=== PATIENT | female | born 1940 | race Caucasian/White ===

== ENCOUNTER → 2017-10-23 08:30 | Outpatient (CLI) | payer MEDICARE, SELFPAY ==
[2017-10-23 10:15] LABS: Alanine Aminotransferase 30 IU/L (9-52); Albumin 4.4 g/dL (3.5-5.0); Albumin Globulin Ratio 1.6 (1.0-2.8); Alkaline Phosphatase 62 U/L (38-126); Aspartate Aminotransferase 17 IU/L (14-36); BUN Creatinine Ratio 17.1 (6-22); Bilirubin Total 0.7 mg/dL (0.2-1.3); Blood Urea Nitrogen 12 mg/dL (7-17); Calcium 9.8 mg/dL (8.4-10.2); Carbon Dioxide 26 mmol/L (22-32); Chloride 104 mmol/L (98-107); Cholesterol 164 mg/dL (140-199); Estimated Glomerular Filt Rate > 60.0 mL/min (>60); Globulin 2.8 g/dL (1.7-4.1); Glucose 98 mg/dL (80-110); HDL Cholesterol 36 mg/dL (40-60); HEMOLYSIS < 15 (0-50); LDL Cholesterol Calculated 102 mg/dL (<100); Potassium 4.3 mmol/L (3.4-5.1); Sodium 144 mmol/L (137-145); Total Protein 7.2 g/dL (6.3-8.2); Triglycerides 129 mg/dL (35-150)
== END ==
PROVIDERS: PCP Internal Medicine; Visit Provider Internal Medicine
DX: I10 Essential (primary) hypertension (principal); E78.00 Pure hypercholesterolemia, unspecified
CPT/HCPCS: 36415; 80053; 80061

== ENCOUNTER → 2018-12-21 09:01 | Outpatient (CLI) | payer MEDICARE, SELFPAY ==
[2018-12-21 10:43] LABS: Alanine Aminotransferase 17 IU/L (9-52); Albumin 4.6 g/dL (3.5-5.0); Albumin Globulin Ratio 1.4 (1.0-2.8); Alkaline Phosphatase 65 U/L (38-126); Aspartate Aminotransferase 22 IU/L (14-36); BUN Creatinine Ratio 18.8 (6-22); Bilirubin Total 0.6 mg/dL (0.2-1.3); Blood Urea Nitrogen 15 mg/dL (7-17); Carbon Dioxide 31 mmol/L (22-32); Chloride 102 mmol/L (98-107); Cholesterol 160 mg/dL (140-199); Estimated Glomerular Filt Rate > 60.0 mL/min (>60); Globulin 3.4 g/dL (1.7-4.1); Glucose 94 mg/dL (80-110); HDL Cholesterol 35 mg/dL (40-60); HEMOLYSIS < 15 (0-50); LDL Cholesterol Calculated 97 mg/dL (<100); Potassium 4.1 mmol/L (3.4-5.1); Sodium 142 mmol/L (137-145); Triglycerides 141 mg/dL (35-150)
[2018-12-21 10:48] LABS: Hematocrit 43.2 % (36-46); Hemoglobin 14.6 g/dL (12.0-16.0); Mean Corpuscular HGB Conc 33.8 % (30-36); Mean Corpuscular Hemoglobin 30.6 PG (26-34); Mean Corpuscular Volume 90.4 fL (80-100); Platelet Count 183 X10^3/uL (150-400); Red Blood Cell Count 4.77 X10^6/uL (4.0-5.2); Red Cell Distribution Width 13.8 % (11.6-14.8); White Blood Cell Count 5.7 X10^3/uL (4.5-11.0)
[2018-12-21 10:55] LABS: Vitamin D 25 Hydroxy (D3) 70.9 ng/mL (30.0-100.0)
[2018-12-21 11:07] LABS: TSH w/ Reflex to FT4 0.63 uIU/mL (0.47-4.68)
[2018-12-21 12:12] LABS: Neutrophils Absolute Manual 3705 /uL (3000-5900); Total Cells Counted 100
[2018-12-21 12:13] LABS: RBC Morphology Normal Morphology
== END ==
PROVIDERS: Family Provider Internal Medicine; PCP Internal Medicine; Visit Provider Nurse Practitioner
DX: E03.9 Hypothyroidism, unspecified (principal); E78.00 Pure hypercholesterolemia, unspecified; I10 Essential (primary) hypertension; E55.9 Vitamin D deficiency, unspecified
CPT/HCPCS: 36415; 80053; 80061; 82306; 84443; 85025

== ENCOUNTER → 2019-01-04 10:03 | Outpatient (CLI) | payer MEDICARE, SELFPAY | PROVIDERS: Family Provider Internal Medicine; PCP Internal Medicine; Visit Provider Nurse Practitioner | DX: Z78.0 Asymptomatic menopausal state (principal); E07.9 Disorder of thyroid, unspecified | CPT/HCPCS: 77080; 77081 ==

== ENCOUNTER → 2019-03-02 08:36 | Outpatient (CLI) | payer MEDICARE, SELFPAY ==
[2019-03-02 10:30] LABS: Alanine Aminotransferase 31 IU/L (9-52); Albumin 4.5 g/dL (3.5-5.0); Albumin Globulin Ratio 1.4 (1.0-2.8); Alkaline Phosphatase 67 U/L (38-126); Aspartate Aminotransferase 27 IU/L (14-36); Blood Urea Nitrogen 12 mg/dL (7-17); Calcium 10.1 mg/dL (8.4-10.2); Carbon Dioxide 32 mmol/L (22-32); Chloride 101 mmol/L (98-107); Cholesterol 174 mg/dL (140-199); Estimated Glomerular Filt Rate > 60.0 mL/min (>60); Globulin 3.2 g/dL (1.7-4.1); Glucose 102 mg/dL (80-110); HDL Cholesterol 34 mg/dL (40-60); HEMOLYSIS < 15 (0-50); LDL Cholesterol Calculated 114 mg/dL (<100); Sodium 142 mmol/L (137-145); Total Protein 7.7 g/dL (6.3-8.2); Triglycerides 132 mg/dL (35-150)
[2019-03-02 10:54] LABS: Thyroid Stimulating Hormone 1.35 uIU/mL (0.47-4.68)
== END ==
PROVIDERS: PCP Internal Medicine; Visit Provider Internal Medicine
DX: E78.00 Pure hypercholesterolemia, unspecified (principal); I10 Essential (primary) hypertension; E03.9 Hypothyroidism, unspecified
CPT/HCPCS: 36415; 80053; 80061; 84443

== ENCOUNTER → 2019-12-19 09:32 | Outpatient (CLI) | payer MEDICARE, SELFPAY ==
[2019-12-19 10:09] LABS: Add Manual Diff / Slide Review NO; Basophils Absolute Auto 100 /uL (0-100); Basophils Percent Auto 1.3 % (0-2); Eosinophils Absolute Auto 200 /uL (0-450); Eosinophils Percent Auto 3.4 % (2-4); Hematocrit 42.7 % (36-46); Hemoglobin 14.6 g/dL (12.0-16.0); Lymphocytes Absolute Auto 1100 /uL (1100-4500); Lymphocytes Percent Auto 22.5 % (25-40); Mean Corpuscular HGB Conc 34.1 % (30-36); Mean Corpuscular Hemoglobin 30.3 PG (26-34); Mean Corpuscular Volume 88.8 fL (80-100); Monocytes Absolute Auto 300 /uL (0-900); Monocytes Percent Auto 6.4 % (3-14); Neutrophils Absolute Auto 3300 /uL (1500-7000); Neutrophils Percent Auto 66.4 % (50-75); Platelet Count 176 X10^3/uL (150-400); Red Blood Cell Count 4.81 X10^6/uL (4.0-5.2); Red Cell Distribution Width 13.7 % (11.6-14.8)
[2019-12-19 10:22] LABS: Hemoglobin A1C% w Est Avg Glu 5.4 % (4.0-6.0)
[2019-12-19 10:25] LABS: Alanine Aminotransferase 24 IU/L (<35); Albumin 4.5 g/dL (3.5-5.0); Albumin Globulin Ratio 1.5 (1.0-2.8); Alkaline Phosphatase 68 U/L (38-126); Aspartate Aminotransferase 25 IU/L (14-36); BUN Creatinine Ratio 19.7 (6-22); Bilirubin Total 0.9 mg/dL (0.2-1.3); Blood Urea Nitrogen 15 mg/dL (7-17); C-Reactive Protein Quant 0.8 mg/dL (<1.0); Calcium 10.4 mg/dL (8.4-10.2); Carbon Dioxide 30 mmol/L (22-32); Chloride 105 mmol/L (98-107); Cholesterol 162 mg/dL (140-199); Estimated Glomerular Filt Rate > 60.0 mL/min (>60); Globulin 3.1 g/dL (1.7-4.1); Glucose 103 mg/dL (80-110); HDL Cholesterol 32 mg/dL (40-60); HEMOLYSIS < 15 (0-50); LDL Cholesterol Calculated 97 mg/dL (<100); Potassium 4.2 mmol/L (3.4-5.1); Sodium 140 mmol/L (137-145); Total Protein 7.6 g/dL (6.3-8.2); Triglycerides 167 mg/dL (35-150)
[2019-12-19 10:40] LABS: Vitamin D 25 Hydroxy (D3) 73.8 ng/mL (30.0-100.0)
[2019-12-19 10:56] LABS: Free T3, Triiodothyronine Free 2.86 pg/mL (2.77-5.27); Free T4, Direct Thyroxine 1.18 ng/dL (0.78-2.19)
[2019-12-19 10:58] LABS: Ferritin 56 ng/mL (11-264)
[2019-12-19 11:10] LABS: Thyroid Stimulating Hormone 0.807 uIU/mL (0.47-4.68)
[2019-12-19 11:28] LABS: Folate > 20.0 ng/mL (2.76-20.0); Vitamin B12 804 pg/mL (239-931)
[2019-12-21 14:39] LABS: Insulin Level Total 20.6 uIU/mL (2.6-24.9)
== END ==
PROVIDERS: PCP Internal Medicine; Referring Provider Acupuncturist; Visit Provider Acupuncturist
DX: Z13.228 Encounter for screening for other metabolic disorders (principal); G47.9 Sleep disorder, unspecified; I10 Essential (primary) hypertension; E03.9 Hypothyroidism, unspecified; I11.9 Hypertensive heart disease without heart failure
CPT/HCPCS: 36415; 80053; 80061; 82306; 82607; 82627; 82728; 82746; 83036; 83525; 84439; 84443; 84481; 85025; 86140

== ENCOUNTER → 2020-02-15 08:32 | Outpatient (CLI) | payer MEDICARE, SELFPAY ==
[2020-02-15 09:47] LABS: Alanine Aminotransferase 22 IU/L (<35); Albumin 4.5 g/dL (3.5-5.0); Albumin Globulin Ratio 1.4 (1.0-2.8); Alkaline Phosphatase 72 U/L (38-126); Aspartate Aminotransferase 23 IU/L (14-36); BUN Creatinine Ratio 17.1 (6-22); Bilirubin Total 0.7 mg/dL (0.2-1.3); Blood Urea Nitrogen 13 mg/dL (7-17); Carbon Dioxide 26 mmol/L (22-32); Chloride 105 mmol/L (98-107); Estimated Glomerular Filt Rate > 60.0 mL/min (>60); Globulin 3.2 g/dL (1.7-4.1); Glucose 100 mg/dL (80-110); HEMOLYSIS < 15 (0-50); Potassium 4.1 mmol/L (3.4-5.1); Sodium 142 mmol/L (137-145); Total Protein 7.7 g/dL (6.3-8.2)
[2020-02-15 11:14] LABS: Calcium 24 Hour Urine 158 mg/day (100-300); Collection Time Urine 24 Hours; Total Volume Urine 1750 mL
[2020-02-16 07:13] LABS: Parathyroid Hormone Int 18 pg/mL (15-65)
== END ==
PROVIDERS: PCP Internal Medicine; Referring Provider Acupuncturist; Visit Provider Acupuncturist
DX: E21.3 Hyperparathyroidism, unspecified (principal)
CPT/HCPCS: 36415; 80053; 82340; 83970

== ENCOUNTER → 2020-09-19 07:32 | Outpatient (CLI) | payer MEDICARE, SELFPAY ==
[2020-09-19 08:37] LABS: Hemoglobin A1C% w Est Avg Glu 5.4 % (4.0-6.0)
[2020-09-19 08:46] LABS: Basophils Absolute Auto 100 /uL (0-100); Basophils Percent Auto 1.2 % (0-2); Eosinophils Absolute Auto 200 /uL (0-450); Hematocrit 43.8 % (36-46); Hemoglobin 14.8 g/dL (12.0-16.0); Lymphocytes Absolute Auto 1500 /uL (1100-4500); Lymphocytes Percent Auto 21.7 % (25-40); Mean Corpuscular HGB Conc 33.8 % (30-36); Mean Corpuscular Volume 88.7 fL (80-100); Monocytes Absolute Auto 500 /uL (0-900); Monocytes Percent Auto 6.7 % (3-14); Neutrophils Absolute Auto 4700 /uL (1500-7000); Neutrophils Percent Auto 67.4 % (50-75); Red Blood Cell Count 4.94 X10^6/uL (4.0-5.2); Red Cell Distribution Width 13.9 % (11.6-14.8); White Blood Cell Count 6.9 X10^3/uL (4.5-11.0)
[2020-09-19 08:52] LABS: HEMOLYSIS < 15 (0-50); Potassium 4.1 mmol/L (3.4-5.1)
[2020-09-19 08:54] LABS: Alanine Aminotransferase 25 IU/L (<35); Albumin 4.4 g/dL (3.5-5.0); Albumin Globulin Ratio 1.5 (1.0-2.8); Alkaline Phosphatase 64 U/L (38-126); Aspartate Aminotransferase 27 IU/L (14-36); BUN Creatinine Ratio 15.5 (6-22); Bilirubin Total 0.6 mg/dL (0.2-1.3); Blood Urea Nitrogen 13 mg/dL (7-17); C-Reactive Protein Quant 0.8 mg/dL (<1.0); Calcium 10.2 mg/dL (8.4-10.2); Carbon Dioxide 28 mmol/L (22-32); Chloride 105 mmol/L (98-107); Cholesterol 150 mg/dL (140-199); Estimated Glomerular Filt Rate > 60.0 mL/min (>60); Glucose 107 mg/dL (80-110); HDL Cholesterol 30 mg/dL (40-60); LDL Cholesterol Calculated 87 mg/dL (<100); Sodium 141 mmol/L (137-145); Total Protein 7.4 g/dL (6.3-8.2); Triglycerides 163 mg/dL (35-150)
[2020-09-19 08:56] LABS: Add Manual Diff / Slide Review SLIDE REVIEW; Total Iron Binding Capacity 325 ug/dL (265-497)
[2020-09-19 09:03] LABS: Free T3, Triiodothyronine Free 3.12 pg/mL (2.77-5.27); Vitamin D 25 Hydroxy (D3) 81.4 ng/mL (30.0-100.0)
[2020-09-19 09:16] LABS: Thyroid Stimulating Hormone 0.732 uIU/mL (0.47-4.68)
[2020-09-19 09:21] LABS: Ferritin 55 ng/mL (11-264)
[2020-09-19 09:47] LABS: Platelet Count 149 X10^3/uL (150-400)
[2020-09-19 09:49] LABS: RBC Morphology Normal Morphology
[2020-09-19 09:51] LABS: Folate > 20.0 ng/mL (2.76-20.0); Vitamin B12 880 pg/mL (239-931)
[2020-09-20 06:11] LABS: Homocysteine 10.9 umol/L (0.0-19.2)
== END ==
PROVIDERS: PCP Internal Medicine; Referring Provider Acupuncturist; Visit Provider Acupuncturist
DX: E78.00 Pure hypercholesterolemia, unspecified (principal); E72.11 Homocystinuria; D52.9 Folate deficiency anemia, unspecified; E55.9 Vitamin D deficiency, unspecified
CPT/HCPCS: 36415; 80053; 80061; 82306; 82607; 82627; 82728; 82746; 83036; 83090; 83550; 84439; 84443; 84481; 85025; 86140

== ENCOUNTER → 2021-04-16 06:53 | Outpatient (CLI) | payer MEDICARE, SELFPAY ==
[2021-04-16 08:16] LABS: Add Manual Diff / Slide Review NO; Basophils Absolute Auto 100 /uL (0-100); Basophils Percent Auto 1.1 % (0-2); Eosinophils Absolute Auto 200 /uL (0-450); Eosinophils Percent Auto 3.9 % (2-4); Hematocrit 42.2 % (36-46); Hemoglobin 14.3 g/dL (12.0-16.0); Lymphocytes Absolute Auto 1300 /uL (1100-4500); Lymphocytes Percent Auto 22.8 % (25-40); Mean Corpuscular HGB Conc 33.8 % (30-36); Mean Corpuscular Volume 88.7 fL (80-100); Monocytes Absolute Auto 400 /uL (0-900); Monocytes Percent Auto 7.3 % (3-14); Neutrophils Absolute Auto 3600 /uL (1500-7000); Neutrophils Percent Auto 64.9 % (50-75); Platelet Count 172 X10^3/uL (150-400); Red Blood Cell Count 4.76 X10^6/uL (4.0-5.2); Red Cell Distribution Width 13.9 % (11.6-14.8); White Blood Cell Count 5.5 X10^3/uL (4.5-11.0)
[2021-04-16 08:20] LABS: HEMOLYSIS < 15 (0-50)
[2021-04-16 08:23] LABS: Hemoglobin A1C% w Est Avg Glu 5.2 % (4.0-6.0)
[2021-04-16 08:28] LABS: Alanine Aminotransferase 48 IU/L (<35); Albumin 4.6 g/dL (3.5-5.0); Albumin Globulin Ratio 1.6 (1.0-2.8); Alkaline Phosphatase 62 U/L (38-126); Aspartate Aminotransferase 36 IU/L (14-36); BUN Creatinine Ratio 19.1 (6-22); Bilirubin Total 0.7 mg/dL (0.2-1.3); Blood Urea Nitrogen 17 mg/dL (7-17); Calcium 10.2 mg/dL (8.4-10.2); Carbon Dioxide 30 mmol/L (22-32); Chloride 102 mmol/L (98-107); Cholesterol 173 mg/dL (140-199); Estimated Glomerular Filt Rate > 60.0 mL/min (>60); Globulin 2.9 g/dL (1.7-4.1); Glucose 111 mg/dL (80-110); HDL Cholesterol 36 mg/dL (40-60); LDL Cholesterol Calculated 113 mg/dL (<100); Potassium 4.5 mmol/L (3.4-5.1); Sodium 141 mmol/L (137-145); Total Protein 7.5 g/dL (6.3-8.2); Triglycerides 121 mg/dL (35-150)
[2021-04-16 08:53] LABS: HEMOLYSIS < 15 (0-50); Iron 80 ug/dL (37-170)
[2021-04-16 09:00] LABS: Ferritin 70 ng/mL (11-264)
[2021-04-16 09:04] LABS: Percent Iron Saturation 26 % (15-50); Total Iron Binding Capacity 308 ug/dL (265-497); Transferrin 237 mg/dL (206-381)
[2021-04-16 09:11] LABS: Vitamin D 25 Hydroxy (D3) 76.3 ng/mL (30.0-100.0)
[2021-04-16 09:14] LABS: Free T3, Triiodothyronine Free 3.12 pg/mL (2.77-5.27); Free T4, Direct Thyroxine 1.08 ng/dL (0.78-2.19)
[2021-04-16 09:17] LABS: Vitamin B12 845 pg/mL (239-931)
[2021-04-16 09:27] LABS: Thyroid Stimulating Hormone 1.37 uIU/mL (0.47-4.68)
[2021-04-16 09:34] LABS: Folate > 20.0 ng/mL (2.76-20.0)
[2021-04-17 08:10] LABS: Homocysteine 11.5 umol/L (0.0-19.2)
== END ==
PROVIDERS: PCP Internal Medicine; Referring Provider Nurse Practitioner Family; Visit Provider Nurse Practitioner Family
DX: I10 Essential (primary) hypertension (principal); R73.03 Prediabetes; E66.3 Overweight; E78.5 Hyperlipidemia, unspecified; E55.9 Vitamin D deficiency, unspecified; E07.9 Disorder of thyroid, unspecified; E03.9 Hypothyroidism, unspecified; I20.0 Unstable angina
CPT/HCPCS: 36415; 80053; 80061; 82306; 82607; 82627; 82728; 82746; 83036; 83090; 83540; 83550; 84439; 84443; 84481; 85025; 86140

== ENCOUNTER → 2021-11-08 06:42 | Outpatient (CLI) | payer MEDICARE, SELFPAY ==
[2021-11-08 07:52] LABS: Add Manual Diff / Slide Review NO; Basophils Absolute Auto 100 /uL (0-100); Basophils Percent Auto 1.2 % (0-2); Eosinophils Absolute Auto 200 /uL (0-450); Eosinophils Percent Auto 3.6 % (2-4); Hematocrit 44.7 % (36-46); Hemoglobin 15.2 g/dL (12.0-16.0); Lymphocytes Absolute Auto 1300 /uL (1100-4500); Lymphocytes Percent Auto 25.7 % (25-40); Mean Corpuscular HGB Conc 34.1 % (30-36); Mean Corpuscular Volume 88.1 fL (80-100); Monocytes Absolute Auto 400 /uL (0-900); Monocytes Percent Auto 8.6 % (3-14); Neutrophils Absolute Auto 3200 /uL (1500-7000); Neutrophils Percent Auto 60.9 % (50-75); Platelet Count 167 X10^3/uL (150-400); Red Blood Cell Count 5.07 X10^6/uL (4.0-5.2); Red Cell Distribution Width 13.7 % (11.6-14.8); White Blood Cell Count 5.2 X10^3/uL (4.5-11.0)
[2021-11-08 10:05] LABS: Thyroid Stimulating Hormone 0.418 uIU/mL (0.47-4.68)
[2021-11-08 10:16] LABS: Sodium 142 mmol/L (137-145)
[2021-11-08 10:17] LABS: Alanine Aminotransferase 87 IU/L (<35); Alkaline Phosphatase 65 U/L (38-126); Aspartate Aminotransferase 52 IU/L (14-36); BUN Creatinine Ratio 19.3 (6-22); Bilirubin Total 0.9 mg/dL (0.2-1.3); Blood Urea Nitrogen 17 mg/dL (7-17); Calcium 9.7 mg/dL (8.4-10.2); Carbon Dioxide 27 mmol/L (22-32); Chloride 105 mmol/L (98-107); Estimated Glomerular Filt Rate > 60 mL/min (>60); Ferritin 88 ng/mL (11-264); Glucose 102 mg/dL (80-110); Potassium 4.5 mmol/L (3.4-5.1); Uric Acid 7.7 mg/dL (2.5-6.2)
[2021-11-08 10:18] LABS: Albumin 4.3 g/dL (3.5-5.0); Albumin Globulin Ratio 1.5 (1.0-2.8); Cholesterol 187 mg/dL (140-199); Globulin 2.9 g/dL (1.7-4.1); HDL Cholesterol 37 mg/dL (40-60); LDL Cholesterol Calculated 126 mg/dL (<100); Total Protein 7.2 g/dL (6.3-8.2); Triglycerides 119 mg/dL (35-150)
[2021-11-08 11:03] LABS: Vitamin D 25 Hydroxy (D3) 70.4 ng/mL (30.0-100.0)
[2021-11-09 05:44] LABS: Homocysteine 12.7 umol/L (0.0-19.2)
[2021-11-10 15:41] LABS: Hemoglobin A1C% w Est Avg Glu 5.5 % (4.0-6.0)
[2021-11-10 17:53] LABS: Free T3, Triiodothyronine Free 3.51 pg/mL (2.77-5.27); Free T4, Direct Thyroxine 2.08 ng/dL (0.78-2.19)
[2021-11-10 18:32] LABS: C-Reactive Protein Quant 1.1 mg/dL (<1.0)
[2021-11-10 19:33] LABS: Folate > 20.0 ng/mL (2.76-20.0); Vitamin B12 889 pg/mL (239-931)
== END ==
PROVIDERS: PCP Internal Medicine; Referring Provider Acupuncturist; Visit Provider Acupuncturist
DX: E11.9 Type 2 diabetes mellitus without complications (principal); E66.3 Overweight; I11.9 Hypertensive heart disease without heart failure; E78.00 Pure hypercholesterolemia, unspecified; I10 Essential (primary) hypertension; E55.9 Vitamin D deficiency, unspecified; E03.9 Hypothyroidism, unspecified
CPT/HCPCS: 36415; 80053; 80061; 82306; 82607; 82627; 82728; 82746; 83036; 83090; 84439; 84443; 84481; 84550; 85025; 86140

== ENCOUNTER → 2022-01-16 09:30 | Outpatient (CLI) | payer MEDICARE, SELFPAY ==
--- NOTE | 2022-01-16 | DI.US.S_ITS ---
PROCEDURE: US ABDOMEN LIMITED INDICATIONS: ELEVATED LIVER FUNCTION TESTS ?LOPES TECHNIQUE: Real-time focused scanning was performed of the abdomen, with image documentation. COMPARISON: None. FINDINGS: The liver demonstrates normal size. The liver demonstrates generalized moderately increased echogenicity. This decreases ultrasound sensitivity for detection of hepatic masses. No findings of gallstones or sludge are seen. The gallbladder wall is not thickened, measuring 3 mm or less. No specific pericholecystic fluid is seen. The sonographic Williamson sign is negative. There is no biliary dilatation, the common bile duct measures 6 mm. The pancreas is overall not well seen. Incidental note is made of a simple right lateral peripelvic cyst that measures up to 1.6 cm. There is a nonshadowing, hyperechoic focus within the right lateral kidney that is nonvascular measures up to 9 mm. Within the mid anterior right kidney there is an echogenic focus that measures up to 5 mm. This study is limited by body habitus. IMPRESSION: The liver demonstrates increased echogenicity. This finding is nonspecific, yet it is most commonly attributed to fatty infiltration. 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 Dictated by: Robert Wilkinson M.D. on 01/16/2022 at 13:47 Approved by: Robert Wilkinson M.D. on 01/16/2022 at 13:49
== END ==
PROVIDERS: PCP Internal Medicine; Referring Provider Internal Medicine; Visit Provider Internal Medicine
DX: N28.1 Cyst of kidney, acquired (principal); R79.89 Other specified abnormal findings of blood chemistry
CPT/HCPCS: 76705

== ENCOUNTER → 2022-01-25 07:56 | Outpatient (CLI) | payer MEDICARE, SELFPAY ==
[2022-01-25 09:23] LABS: Add Manual Diff / Slide Review NO; Basophils Absolute Auto 100 /uL (0-100); Basophils Percent Auto 1.2 % (0-2); Eosinophils Absolute Auto 200 /uL (0-450); Eosinophils Percent Auto 3.9 % (2-4); Hematocrit 45.2 % (36-46); Hemoglobin 15.2 g/dL (12.0-16.0); Lymphocytes Absolute Auto 1200 /uL (1100-4500); Lymphocytes Percent Auto 21.5 % (25-40); Mean Corpuscular HGB Conc 33.6 % (30-36); Mean Corpuscular Hemoglobin 29.7 PG (26-34); Mean Corpuscular Volume 88.4 fL (80-100); Monocytes Absolute Auto 500 /uL (0-900); Neutrophils Absolute Auto 3700 /uL (1500-7000); Neutrophils Percent Auto 65.4 % (50-75); Platelet Count 172 X10^3/uL (150-400); Red Blood Cell Count 5.12 X10^6/uL (4.0-5.2); Red Cell Distribution Width 14.3 % (11.6-14.8); White Blood Cell Count 5.7 X10^3/uL (4.5-11.0)
[2022-01-25 09:44] LABS: Alanine Aminotransferase 144 IU/L (<35); Albumin 4.4 g/dL (3.5-5.0); Albumin Globulin Ratio 1.3 (1.0-2.8); Alkaline Phosphatase 68 U/L (38-126); Aspartate Aminotransferase 82 IU/L (14-36); BUN Creatinine Ratio 16.1 (6-22); Bilirubin Total 0.6 mg/dL (0.2-1.3); Blood Urea Nitrogen 15 mg/dL (7-17); C-Reactive Protein Quant 1.1 mg/dL (<1.0); Calcium 9.8 mg/dL (8.4-10.2); Carbon Dioxide 29 mmol/L (22-32); Chloride 106 mmol/L (98-107); Cholesterol 244 mg/dL (140-199); Estimated Glomerular Filt Rate > 60 mL/min (>60); Gamma Glutamyl Transpeptidase 29 U/L (12-43); Globulin 3.5 g/dL (1.7-4.1); Glucose 98 mg/dL (80-110); HDL Cholesterol 34 mg/dL (40-60); HEMOLYSIS < 15 (0-50); LDL Cholesterol Calculated 183 mg/dL (<100); Potassium 4.7 mmol/L (3.4-5.1); Sodium 140 mmol/L (137-145); Total Protein 7.9 g/dL (6.3-8.2); Triglycerides 137 mg/dL (35-150); Uric Acid 5.2 mg/dL (2.5-6.2)
[2022-01-25 10:08] LABS: Thyroid Stimulating Hormone 2.58 uIU/mL (0.47-4.68)
[2022-01-25 10:43] LABS: Folate > 20.0 ng/mL (2.76-20.0); Vitamin B12 844 pg/mL (239-931)
[2022-01-25 14:55] LABS: Hepatitis B Surface Antigen NEGATIVE s/c (NEGATIVE)
[2022-01-25 15:12] LABS: Hep C Virus Ab w/Reflex Quant NEGATIVE s/c (NEGATIVE)
== END ==
PROVIDERS: PCP Internal Medicine; Referring Provider Acupuncturist; Visit Provider Acupuncturist
DX: I11.9 Hypertensive heart disease without heart failure (principal); E78.00 Pure hypercholesterolemia, unspecified; I10 Essential (primary) hypertension; E03.9 Hypothyroidism, unspecified; E66.3 Overweight; E55.9 Vitamin D deficiency, unspecified
CPT/HCPCS: 36415; 80053; 80061; 82607; 82627; 82746; 82977; 84443; 84550; 85025; 86140; 86803; 87340

== ENCOUNTER → 2022-06-10 11:12 | Outpatient (CLI) | payer MEDICARE, SELFPAY ==
[2022-06-10 12:39] LABS: Iron 124 ug/dL (37-170)
[2022-06-10 12:50] LABS: Total Iron Binding Capacity 326 ug/dL (265-497); Transferrin 239 mg/dL (206-381)
[2022-06-11 08:28] LABS: Alpha 1 Anti Trypsin 172 mg/dL (101-187); Ceruloplasmin 23.4 mg/dL (19.0-39.0); Immunoglobulin A 211 mg/dL (64-422)
[2022-06-11 22:23] LABS: Tissue Transglutaminase IgA <2 U/mL (0-3); Tissue Transglutaminase IgG <2 U/mL (0-5)
[2022-06-13 10:18] LABS: Smooth Muscle Antibody 18 Units (0-19)
[2022-06-13 16:35] LABS: ANA Screen, IFA Negative (.)
[2022-06-14 08:09] LABS: TPMT Activity 21.8 (.)
== END ==
PROVIDERS: PCP Internal Medicine; Referring Provider Internal Medicine Gastroenterology; Visit Provider Internal Medicine Gastroenterology
DX: R94.5 Abnormal results of liver function studies (principal)
CPT/HCPCS: 36415; 82103; 82390; 82657; 82784; 83516; 83540; 83550; 84466; 86038; 86376

== ENCOUNTER → 2022-10-03 07:10 | Outpatient (CLI) | payer MEDICARE, SELFPAY ==
[2022-10-03 07:59] LABS: Add Manual Diff / Slide Review NO; Basophils Absolute Auto 100 /uL (0-100); Basophils Percent Auto 1.3 % (0-2); Eosinophils Absolute Auto 300 /uL (0-450); Hematocrit 42.9 % (36-46); Hemoglobin 14.8 g/dL (12.0-16.0); Lymphocytes Absolute Auto 1300 /uL (1100-4500); Lymphocytes Percent Auto 23.2 % (25-40); Mean Corpuscular HGB Conc 34.6 % (30-36); Mean Corpuscular Hemoglobin 30.8 PG (26-34); Monocytes Absolute Auto 400 /uL (0-900); Monocytes Percent Auto 7.3 % (3-14); Neutrophils Absolute Auto 3600 /uL (1500-7000); Neutrophils Percent Auto 63.2 % (50-75); Platelet Count 153 X10^3/uL (150-400); Red Blood Cell Count 4.82 X10^6/uL (4.0-5.2); Red Cell Distribution Width 13.5 % (11.6-14.8); White Blood Cell Count 5.6 X10^3/uL (4.5-11.0)
[2022-10-03 08:14] LABS: Alanine Aminotransferase 128 IU/L (<35); Albumin 3.9 g/dL (3.5-5.0); Albumin Globulin Ratio 1.4 (1.0-2.8); Alkaline Phosphatase 73 U/L (38-126); Aspartate Aminotransferase 85 IU/L (14-36); Bilirubin Total 0.8 mg/dL (0.2-1.3); Blood Urea Nitrogen 12 mg/dL (7-17); C-Reactive Protein Quant 1.9 mg/dL (<1.0); Calcium 9.5 mg/dL (8.4-10.2); Carbon Dioxide 29 mmol/L (22-32); Chloride 107 mmol/L (98-107); Cholesterol 237 mg/dL (140-199); Estimated Glomerular Filt Rate > 60 mL/min (>60); Gamma Glutamyl Transpeptidase 28 U/L (12-43); Globulin 2.7 g/dL (1.7-4.1); Glucose 99 mg/dL (80-110); HDL Cholesterol 42 mg/dL (40-60); HEMOLYSIS < 15 (0-50); LDL Cholesterol Calculated 171 mg/dL (<100); Potassium 3.9 mmol/L (3.4-5.1); Sodium 140 mmol/L (137-145); Total Protein 6.6 g/dL (6.3-8.2); Triglycerides 118 mg/dL (35-150); Uric Acid 6.7 mg/dL (2.5-6.2)
[2022-10-03 08:25] LABS: Free T3, Triiodothyronine Free 3.12 pg/mL (2.77-5.27); Free T4, Direct Thyroxine 1.43 ng/dL (0.78-2.19); Vitamin D 25 Hydroxy (D3) 74.4 ng/mL (30.0-100.0)
[2022-10-03 08:39] LABS: Thyroid Stimulating Hormone 1.99 uIU/mL (0.47-4.68)
[2022-10-03 08:43] LABS: Ferritin 127 ng/mL (11-264)
[2022-10-04 09:51] LABS: Homocysteine 10.8 umol/L (0.0-19.2)
== END ==
PROVIDERS: Referring Provider Acupuncturist; Visit Provider Acupuncturist
DX: I11.9 Hypertensive heart disease without heart failure (principal); E78.00 Pure hypercholesterolemia, unspecified; E55.9 Vitamin D deficiency, unspecified; E03.9 Hypothyroidism, unspecified
CPT/HCPCS: 36415; 80053; 80061; 82306; 82627; 82728; 82977; 83090; 84439; 84443; 84481; 84550; 85025; 86140

== ENCOUNTER → 2023-01-08 07:13 | Outpatient (CLI) | payer MEDICARE, SELFPAY ==
[2023-01-08 08:08] LABS: Alanine Aminotransferase 142 IU/L (<35); Albumin 4.1 g/dL (3.5-5.0); Albumin Globulin Ratio 1.4 (1.0-2.8); Alkaline Phosphatase 72 U/L (38-126); Aspartate Aminotransferase 97 IU/L (14-36); BUN Creatinine Ratio 19.4 (6-22); Bilirubin Total 0.7 mg/dL (0.2-1.3); Blood Urea Nitrogen 14 mg/dL (7-17); C-Reactive Protein Quant 1.2 mg/dL (<1.0); Calcium 9.3 mg/dL (8.4-10.2); Carbon Dioxide 31 mmol/L (22-32); Chloride 106 mmol/L (98-107); Cholesterol 222 mg/dL (140-199); Estimated Glomerular Filt Rate > 60 mL/min (>60); Glucose 107 mg/dL (80-110); HDL Cholesterol 36 mg/dL (40-60); HEMOLYSIS 22 (0-50); LDL Cholesterol Calculated 154 mg/dL (<100); Potassium 4.4 mmol/L (3.4-5.1); Sodium 141 mmol/L (137-145); Total Protein 7.1 g/dL (6.3-8.2); Triglycerides 159 mg/dL (35-150); Uric Acid 6.8 mg/dL (2.5-6.2)
[2023-01-08 08:21] LABS: Add Manual Diff / Slide Review NO; Basophils Absolute Auto 100 /uL (0-100); Basophils Percent Auto 1.2 % (0-2); Eosinophils Absolute Auto 300 /uL (0-450); Eosinophils Percent Auto 5.3 % (2-4); Hematocrit 43.5 % (36-46); Hemoglobin 14.9 g/dL (12.0-16.0); Lymphocytes Absolute Auto 1500 /uL (1100-4500); Lymphocytes Percent Auto 23.8 % (25-40); Mean Corpuscular HGB Conc 34.2 % (30-36); Mean Corpuscular Hemoglobin 30.5 PG (26-34); Mean Corpuscular Volume 89.4 fL (80-100); Monocytes Absolute Auto 500 /uL (0-900); Monocytes Percent Auto 7.5 % (3-14); Neutrophils Absolute Auto 3900 /uL (1500-7000); Neutrophils Percent Auto 62.2 % (50-75); Platelet Count 168 X10^3/uL (150-400); Red Blood Cell Count 4.87 X10^6/uL (4.0-5.2); Red Cell Distribution Width 14.1 % (11.6-14.8); White Blood Cell Count 6.2 X10^3/uL (4.5-11.0)
[2023-01-08 08:23] LABS: Vitamin D 25 Hydroxy (D3) 81.5 ng/mL (30.0-100.0)
[2023-01-08 08:40] LABS: Ferritin 130 ng/mL (11-264)
[2023-01-08 12:14] LABS: Free T3, Triiodothyronine Free 3.45 pg/mL (2.77-5.27); Free T4, Direct Thyroxine 1.69 ng/dL (0.78-2.19)
[2023-01-08 12:28] LABS: Thyroid Stimulating Hormone 0.557 uIU/mL (0.47-4.68)
[2023-01-10 05:53] LABS: Homocysteine 11.5 umol/L (0.0-19.2)
== END ==
PROVIDERS: Referring Provider Acupuncturist; Visit Provider Acupuncturist
DX: I11.9 Hypertensive heart disease without heart failure (principal); E78.00 Pure hypercholesterolemia, unspecified; E55.9 Vitamin D deficiency, unspecified
CPT/HCPCS: 36415; 80053; 80061; 82306; 82728; 83090; 84439; 84443; 84481; 84550; 85025; 86140

== ENCOUNTER → 2023-03-19 07:22 | Outpatient (CLI) | payer MEDICARE, SELFPAY ==
[2023-03-19 08:17] LABS: Add Manual Diff / Slide Review NO; Basophils Absolute Auto 100 /uL (0-100); Basophils Percent Auto 1.4 % (0-2); Eosinophils Absolute Auto 300 /uL (0-450); Eosinophils Percent Auto 4.5 % (2-4); Hematocrit 43.9 % (36-46); Lymphocytes Absolute Auto 1400 /uL (1100-4500); Lymphocytes Percent Auto 23.3 % (25-40); Mean Corpuscular HGB Conc 34.2 % (30-36); Mean Corpuscular Hemoglobin 30.4 PG (26-34); Mean Corpuscular Volume 88.9 fL (80-100); Monocytes Absolute Auto 500 /uL (0-900); Monocytes Percent Auto 8.2 % (3-14); Neutrophils Absolute Auto 3900 /uL (1500-7000); Neutrophils Percent Auto 62.6 % (50-75); Platelet Count 160 X10^3/uL (150-400); Red Blood Cell Count 4.94 X10^6/uL (4.0-5.2); White Blood Cell Count 6.2 X10^3/uL (4.5-11.0)
[2023-03-19 08:31] LABS: Alanine Aminotransferase 175 IU/L (<35); Albumin 3.9 g/dL (3.5-5.0); Albumin Globulin Ratio 1.4 (1.0-2.8); Alkaline Phosphatase 73 U/L (38-126); Aspartate Aminotransferase 108 IU/L (14-36); BUN Creatinine Ratio 15.8 (6-22); Bilirubin Total 0.8 mg/dL (0.2-1.3); Blood Urea Nitrogen 12 mg/dL (7-17); C-Reactive Protein Quant 2.3 mg/dL (<1.0); Carbon Dioxide 26 mmol/L (22-32); Chloride 107 mmol/L (98-107); Cholesterol 235 mg/dL (140-199); Estimated Glomerular Filt Rate > 60 mL/min (>60); Gamma Glutamyl Transpeptidase 57 U/L (12-43); Globulin 2.7 g/dL (1.7-4.1); Glucose 96 mg/dL (80-110); HDL Cholesterol 39 mg/dL (40-60); HEMOLYSIS < 15 (0-50); LDL Cholesterol Calculated 170 mg/dL (<100); Potassium 3.9 mmol/L (3.4-5.1); Sodium 140 mmol/L (137-145); Total Protein 6.6 g/dL (6.3-8.2); Triglycerides 129 mg/dL (35-150)
[2023-03-19 08:44] LABS: Free T3, Triiodothyronine Free 3.32 pg/mL (2.77-5.27); Free T4, Direct Thyroxine 1.92 ng/dL (0.78-2.19); Vitamin D 25 Hydroxy (D3) 78.9 ng/mL (30.0-100.0)
[2023-03-19 08:57] LABS: Thyroid Stimulating Hormone 1.05 uIU/mL (0.47-4.68)
[2023-03-19 09:02] LABS: Ferritin 164 ng/mL (11-264)
[2023-03-20 05:44] LABS: Homocysteine 11.3 umol/L (0.0-21.3)
== END ==
PROVIDERS: PCP Family Medicine; Referring Provider Acupuncturist; Visit Provider Acupuncturist
DX: I11.9 Hypertensive heart disease without heart failure (principal); K73.0 Chronic persistent hepatitis, not elsewhere classified; E78.00 Pure hypercholesterolemia, unspecified; E55.9 Vitamin D deficiency, unspecified; K73.9 Chronic hepatitis, unspecified
CPT/HCPCS: 36415; 80053; 80061; 82306; 82728; 82977; 83090; 84439; 84443; 84481; 84550; 85025; 86140

== ENCOUNTER → 2023-06-29 10:09 | Outpatient (CLI) | payer MEDICARE, SELFPAY ==
[2023-06-29 10:47] LABS: Add Manual Diff / Slide Review NO; Basophils Absolute Auto 100 /uL (0-100); Basophils Percent Auto 1.3 % (0-2); Eosinophils Absolute Auto 300 /uL (0-450); Eosinophils Percent Auto 3.7 % (2-4); Hematocrit 43.3 % (36-46); Lymphocytes Absolute Auto 1600 /uL (1100-4500); Lymphocytes Percent Auto 22.8 % (25-40); Mean Corpuscular HGB Conc 34.7 % (30-36); Mean Corpuscular Hemoglobin 30.9 PG (26-34); Monocytes Absolute Auto 500 /uL (0-900); Monocytes Percent Auto 7.8 % (3-14); Neutrophils Absolute Auto 4400 /uL (1500-7000); Neutrophils Percent Auto 64.4 % (50-75); Platelet Count 167 X10^3/uL (150-400); Red Blood Cell Count 4.87 X10^6/uL (4.0-5.2); Red Cell Distribution Width 13.4 % (11.6-14.8); White Blood Cell Count 6.9 X10^3/uL (4.5-11.0)
[2023-06-29 11:22] LABS: Alanine Aminotransferase 107 IU/L (<35); Albumin 4.1 g/dL (3.5-5.0); Albumin Globulin Ratio 1.3 (1.0-2.8); Alkaline Phosphatase 89 U/L (38-126); Aspartate Aminotransferase 86 IU/L (14-36); BUN Creatinine Ratio 16.4 (6-22); Bilirubin Total 1.1 mg/dL (0.2-1.3); Blood Urea Nitrogen 12 mg/dL (7-17); C-Reactive Protein Quant 2.6 mg/dL (<1.0); Calcium 10.1 mg/dL (8.4-10.2); Carbon Dioxide 30 mmol/L (22-32); Chloride 103 mmol/L (98-107); Cholesterol 140 mg/dL (140-199); Estimated Glomerular Filt Rate > 60 mL/min (>60); Gamma Glutamyl Transpeptidase 64 U/L (12-43); Globulin 3.2 g/dL (1.7-4.1); Glucose 98 mg/dL (80-110); HDL Cholesterol 35 mg/dL (40-60); HEMOLYSIS < 15 (0-50); LDL Cholesterol Calculated 82 mg/dL (<100); Potassium 3.7 mmol/L (3.4-5.1); Sodium 141 mmol/L (137-145); Total Protein 7.3 g/dL (6.3-8.2); Triglycerides 114 mg/dL (35-150); Uric Acid 7.3 mg/dL (2.5-6.2)
[2023-06-29 11:30] LABS: Vitamin D 25 Hydroxy (D3) 71.4 ng/mL (30.0-100.0)
[2023-06-29 11:48] LABS: Ferritin 158 ng/mL (11-264)
[2023-06-30 09:36] LABS: Homocysteine 12.3 umol/L (0.0-21.3)
== END ==
PROVIDERS: PCP Family Medicine; Referring Provider Acupuncturist; Visit Provider Acupuncturist
DX: E11.9 Type 2 diabetes mellitus without complications (principal); E78.00 Pure hypercholesterolemia, unspecified; E55.9 Vitamin D deficiency, unspecified; K73.0 Chronic persistent hepatitis, not elsewhere classified; K73.9 Chronic hepatitis, unspecified
CPT/HCPCS: 36415; 80053; 80061; 82306; 82728; 82977; 83090; 84550; 85025; 86140

== ENCOUNTER → 2023-07-13 11:24 | Outpatient (CLI) | payer MEDICARE, SELFPAY | PROVIDERS: PCP Family Medicine; Visit Provider Family Medicine | DX: R30.0 Dysuria (principal) | CPT/HCPCS: 87077; 87086; 87186 ==

== ENCOUNTER → 2023-09-23 08:12 | Outpatient (CLI) | payer MEDICARE, SELFPAY ==
[2023-09-23 10:09] LABS: Alanine Aminotransferase 158 IU/L (<35); Albumin 4.3 g/dL (3.5-5.0); Albumin Globulin Ratio 1.5 (1.0-2.8); Alkaline Phosphatase 84 U/L (38-126); Aspartate Aminotransferase 120 IU/L (14-36); BUN Creatinine Ratio 16.2 (6-22); Bilirubin Total 0.9 mg/dL (0.2-1.3); Blood Urea Nitrogen 11 mg/dL (7-17); C-Reactive Protein Quant 1.8 mg/dL (<1.0); Calcium 9.8 mg/dL (8.4-10.2); Carbon Dioxide 34 mmol/L (22-32); Chloride 107 mmol/L (98-107); Cholesterol 165 mg/dL (140-199); Estimated Glomerular Filt Rate > 60 mL/min (>60); Globulin 2.9 g/dL (1.7-4.1); Glucose 97 mg/dL (80-110); HDL Cholesterol 35 mg/dL (40-60); HEMOLYSIS < 15 (0-50); LDL Cholesterol Calculated 103 mg/dL (<100); Lactate Dehydrogenase 181 U/L (120-246); Potassium 4.4 mmol/L (3.4-5.1); Sodium 143 mmol/L (137-145); Total Protein 7.2 g/dL (6.3-8.2); Triglycerides 135 mg/dL (35-150)
[2023-09-23 10:17] LABS: Vitamin D 25 Hydroxy (D3) 69.5 ng/mL (30.0-100.0)
== END ==
PROVIDERS: PCP Family Medicine; Referring Provider Acupuncturist; Visit Provider Acupuncturist
DX: E78.00 Pure hypercholesterolemia, unspecified (principal); E55.9 Vitamin D deficiency, unspecified; K73.9 Chronic hepatitis, unspecified; K73.0 Chronic persistent hepatitis, not elsewhere classified
CPT/HCPCS: 36415; 80053; 80061; 82306; 83615; 84550; 86140

== ENCOUNTER → 2024-01-18 08:25 | Outpatient (CLI) | payer MEDICARE, SELFPAY ==
[2024-01-18 10:10] LABS: Alanine Aminotransferase 118 IU/L (<35); Albumin 4.1 g/dL (3.5-5.0); Albumin Globulin Ratio 1.4 (1.0-2.8); Alkaline Phosphatase 92 U/L (38-126); Aspartate Aminotransferase 95 IU/L (14-36); BUN Creatinine Ratio 16.5 (6-22); Bilirubin Total 0.9 mg/dL (0.2-1.3); Blood Urea Nitrogen 13 mg/dL (7-17); Calcium 9.6 mg/dL (8.4-10.2); Carbon Dioxide 30 mmol/L (22-32); Chloride 102 mmol/L (98-107); Estimated Glomerular Filt Rate > 60 mL/min (>60); Globulin 2.9 g/dL (1.7-4.1); Glucose 101 mg/dL (80-110); HEMOLYSIS < 15 (0-50); Potassium 4.3 mmol/L (3.4-5.1); Sodium 139 mmol/L (137-145)
[2024-01-18 10:18] LABS: Hemoglobin A1C% w Est Avg Glu 5.3 % (4.0-6.0)
== END ==
PROVIDERS: PCP Family Medicine; Referring Provider Family Medicine; Visit Provider Family Medicine
DX: I10 Essential (primary) hypertension (principal); E78.49 Other hyperlipidemia; E03.9 Hypothyroidism, unspecified
CPT/HCPCS: 36415; 80053; 83036

== ENCOUNTER → 2024-03-03 09:42 | Outpatient (CLI) | payer MEDICARE, SELFPAY ==
--- NOTE | 2024-03-03 09:44 | DI.RAD.S_ITS ---
PROCEDURE: XR DEXA AXIAL SKELETON INDICATIONS: screening COMPARISON: [facility], [facility], XR DEXA AXIAL SKELETON, 01/04/2019, 10:27. FINDINGS: Lumbar Spine: Bone mineral density 1.284 g/cm2, T score 2.2. There is interval 3.1 percent decrease in total lumbar spine bone mineral density. Left Forearm: Bone mineral density 0.636 g/cm2, T score -1.0. Fracture Risk Calculation (when applicable): Not applicable. (T score greater or equal to -1.0 to: NORMAL) (T score from -1.1 to -2.4: OSTEOPENIA) (T score less than or equal to -2.5: OSTEOPOROSIS) IMPRESSION: Normal bone mineral density. Follow-up guidelines as follows: Osteoporosis: Consider a repeat DEXA and Vertebral Fracture Assessment (VFA) exam in 2 years or sooner if medically necessary, to reassess this patient's status. Osteopenia: Consider a repeat DEXA in 2-3 years to reassess this patient's status, or if there is a new clinical indication. Normal: Consider a repeat DEXA in 5 years or sooner, or if there is a new clinical indication. All treatment decisions require clinical judgment and consideration of individual patient factors, including patient preferences, comorbidities, previous drug use, risk factors not captured in the FRAX model (e.g., frailty, falls, vitamin D deficiency, increased bone turnover, interval significant decline in bone density ) and possible under- or over-estimation of fracture risk by FRAX. In addition, the NOF Guide recommends that FDA-approved medical therapies be considered in postmenopausal women and men age >= 50 years with a: * Hip or vertebral (clinical or morphometric) fracture * T-score of <=-2.5 at the spine or hip * Ten-year fracture probability by FRAX of >= 3% for hip fracture or >=20% for major osteoporotic fracture. People with diagnosed cases of osteoporosis or at high risk for fracture should have regular bone mineral density tests. For patients eligible for Medicare, routine testing is allowed once every 2 years. The testing frequency can be increased to one year for patients who have rapidly progressing disease, those who are receiving or discontinuing medical therapy to restore bone mass, or have additional risk factors. Dictated by: Ernesto Holt M.D. on 03/03/2024 at 16:42 Approved by: Ernesto Holt M.D. on 03/03/2024 at 16:42
== END ==
PROVIDERS: PCP Family Medicine; Referring Provider Family Medicine; Visit Provider Family Medicine
DX: M81.0 Age-related osteoporosis without current pathological fracture (principal)
CPT/HCPCS: 77080; 77081

== ENCOUNTER → 2024-07-07 08:20 | Outpatient (CLI) | payer MEDICARE, SELFPAY ==
[2024-07-07 09:01] LABS: Add Manual Diff / Slide Review NO; Basophils Absolute Auto 100 /uL (0-100); Eosinophils Absolute Auto 300 /uL (0-450); Eosinophils Percent Auto 4.3 % (2-4); Hematocrit 45.7 % (36-46); Hemoglobin 15.3 g/dL (12.0-16.0); Lymphocytes Absolute Auto 1500 /uL (1100-4500); Lymphocytes Percent Auto 21.2 % (25-40); Mean Corpuscular HGB Conc 33.5 % (30-36); Mean Corpuscular Hemoglobin 31.1 PG (26-34); Mean Corpuscular Volume 92.8 fL (80-100); Monocytes Absolute Auto 500 /uL (0-900); Monocytes Percent Auto 7.2 % (3-14); Neutrophils Absolute Auto 4600 /uL (1500-7000); Neutrophils Percent Auto 66.3 % (50-75); Platelet Count 177 X10^3/uL (150-400); Red Blood Cell Count 4.92 X10^6/uL (4.0-5.2); Red Cell Distribution Width 13.8 % (11.6-14.8)
[2024-07-07 09:27] LABS: Alanine Aminotransferase 85 IU/L (<35); Albumin 4.4 g/dL (3.5-5.0); Albumin Globulin Ratio 1.6 (1.0-2.8); Alkaline Phosphatase 86 U/L (38-126); Aspartate Aminotransferase 77 IU/L (14-36); BUN Creatinine Ratio 16.2 (6-22); Blood Urea Nitrogen 12 mg/dL (7-17); Calcium 9.9 mg/dL (8.4-10.2); Carbon Dioxide 30 mmol/L (22-32); Chloride 103 mmol/L (98-107); Estimated Glomerular Filt Rate > 60 mL/min (>60); Globulin 2.7 g/dL (1.7-4.1); Glucose 103 mg/dL (80-110); HEMOLYSIS < 15 (0-50); Potassium 3.9 mmol/L (3.4-5.1); Sodium 139 mmol/L (137-145); Total Protein 7.1 g/dL (6.3-8.2)
== END ==
PROVIDERS: PCP Family Medicine; Referring Provider Family Medicine; Visit Provider Family Medicine
DX: R79.89 Other specified abnormal findings of blood chemistry (principal)
CPT/HCPCS: 36415; 80053; 85025

== ENCOUNTER → 2024-07-23 08:05 | Outpatient (CLI) | payer MEDICARE, SELFPAY ==
[2024-07-23 09:37] LABS: Alanine Aminotransferase 80 IU/L (<35); Albumin 4.2 g/dL (3.5-5.0); Albumin Globulin Ratio 1.5 (1.0-2.8); Alkaline Phosphatase 89 U/L (38-126); Aspartate Aminotransferase 92 IU/L (14-36); BUN Creatinine Ratio 21.8 (6-22); Bilirubin Total 0.9 mg/dL (0.2-1.3); Blood Urea Nitrogen 17 mg/dL (7-17); C-Reactive Protein Quant 1.1 mg/dL (<1.0); Calcium 9.5 mg/dL (8.4-10.2); Carbon Dioxide 27 mmol/L (22-32); Chloride 104 mmol/L (98-107); Cholesterol 157 mg/dL (140-199); Estimated Glomerular Filt Rate > 60 mL/min (>60); Gamma Glutamyl Transpeptidase 105 U/L (12-43); Globulin 2.8 g/dL (1.7-4.1); Glucose 96 mg/dL (80-110); HDL Cholesterol 34 mg/dL (40-60); HEMOLYSIS < 15 (0-50); LDL Cholesterol Calculated 93 mg/dL (<100); Lactate Dehydrogenase 168 U/L (120-246); Potassium 4.1 mmol/L (3.4-5.1); Sodium 140 mmol/L (137-145); Triglycerides 152 mg/dL (35-150); Uric Acid 6.4 mg/dL (2.5-6.2)
[2024-07-23 10:08] LABS: Vitamin D 25 Hydroxy (D3) 53.2 ng/mL (30.0-100.0)
== END ==
PROVIDERS: PCP Family Medicine; Referring Provider Acupuncturist; Visit Provider Acupuncturist
DX: E78.00 Pure hypercholesterolemia, unspecified (principal); E55.9 Vitamin D deficiency, unspecified; K73.0 Chronic persistent hepatitis, not elsewhere classified; K73.9 Chronic hepatitis, unspecified
CPT/HCPCS: 36415; 80053; 80061; 82306; 82977; 83615; 84550; 86140

== ENCOUNTER → 2025-02-24 10:13 | Outpatient (CLI) | payer MEDICARE, SELFPAY ==
[2025-02-24 13:52] LABS: Alanine Aminotransferase 28 IU/L (<35); Albumin 4.0 g/dL (3.5-5.0); Albumin Globulin Ratio 1.3 (1.0-2.8); Alkaline Phosphatase 90 U/L (38-126); Blood Urea Nitrogen 18 mg/dL (7-17); Calcium 9.3 mg/dL (8.4-10.2); Carbon Dioxide 27 mmol/L (22-32); Chloride 103 mmol/L (98-107); Estimated Glomerular Filt Rate > 60 mL/min (>60); Globulin 3.0 g/dL (1.7-4.1); Glucose 94 mg/dL (70-99); HEMOLYSIS 29 (0-50); Potassium 3.9 mmol/L (3.4-5.1); Sodium 140 mmol/L (137-145); Total Protein 7.0 g/dL (6.3-8.2); Uric Acid 6.1 mg/dL (2.5-6.2)
== END ==
PROVIDERS: PCP Family Medicine; Referring Provider Family Medicine; Visit Provider Family Medicine
DX: K76.0 Fatty (change of) liver, not elsewhere classified (principal); I10 Essential (primary) hypertension; E79.0 Hyperuricemia without signs of inflammatory arthritis and tophaceous disease
CPT/HCPCS: 36415; 80053; 84550